=== PATIENT | male | born 1980 | race Caucasian/White ===

== ENCOUNTER 2023-01-26 18:33 | Emergency (ER) | payer MEDICAID, SELFPAY ==
[2023-01-26 18:48] VITALS: BP 114/73; PULSE 75; RESP 16; TEMP 36.9; O2SAT 98; BMI 28.5
[2023-01-26 19:53] VITALS: BP 134/88; PULSE 70; RESP 16; O2SAT 96
--- NOTE | 2023-01-26 20:02 | XR_ITS ---
The [address] [address] Patient Name: NICHOLAS ARZOLA MRN: [id number] date: 1980 Sex: M Assigned Patient Location: ER Current Patient Location: ER Accession/Order Number: [id number] Exam Date: 01/26/2023 20:35 Report Date: 01/26/2023 20:54 At the request of: RADHA GARCIA Procedure: XR abdomen 1V Exam: Radiographs: XR abdomen 1V Reason for exam: possible constipation Comparison: None XR/XR abdomen 1V IMPRESSION: No gas-filled dilated loops of small bowel or colon. No gaseous dilation of the stomach. No fecal impaction. 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 Remainder unremarkable. Electronically authenticated by: DARIO MCPHERSON Date: 01/26/2023 20:54
--- NOTE | 2023-01-26 20:03 | ED_ITS ---
HPI - General Adult General Chief complaint: Abdominal Pain Stated complaint: Abdominal Pain Time Seen by Provider: 01/26/23 19:59 Source: patient Limitations: no limitations History of Present Illness HPI narrative: 42-year-old male presents for discomfort in his abdomen. He doesn't have abdominal pain and he hasn't been vomiting and hasn't had a fever. He is on methadone and sometimes he gets constipated and he's worried about being c onstipated. It feels like gas. He's had this for the last day or two. Related Data Allergies Allergy/AdvReac Type Severity Reaction Status Date / Time No Known Drug Allergies Allergy Verified 01/26/23 18:47 Review of Systems ROS Narrative A ten point review of systems is negative except as noted above. PFSH PFSH Social History Smoking status: Heavy tobacco smoker Exam Narrative Exam Narrative: Nurses note and vital signs reviewed and patient is not hypoxic. General: The patient appears well and in no apparent distress. Patient is resting comfortably on cart. Skin: Warm, dry, no pallor noted. There is no rash noted. Head: Normocephalic, atraumatic Eye: Normal conjunctiva, no drainage Ears, Nose, Mouth, and Throat: oral mucosa is moist. Nares patent. he is edentulous. Cardiovascular: Regular Rate and Rhythm Respiratory: Patient is in no distress, no accessory muscle use, lungs are clear to auscultation, no wheezing, rales or rhonchi Back: non-tender GI: soft and there is no tenderness or distention or mass Musculoskeletal: The patient has no evidence of calf tenderness, no pitting edema, symmetrical pulses noted bilaterally Neurological: A&O, normal speech Psychiatric: Cooperative Constitutional Vital Signs, click to edit/add: Last Vital Signs Temp 98.4 F 01/26/23 18:48 Pulse 70 01/26/23 19:53 Resp 16 01/26/23 19:53 BP 134/88 01/26/23 19:53 Pulse Ox 96 01/26/23 19:53 O2 Del Method Room Air 01/26/23 19:53 Course Vital Signs Vital signs: Vital Signs Temperature 98.4 F 01/26/23 18:48 Pulse Rate 75 01/26/23 18:48 Respiratory Rate 16 01/26/23 18:48 Blood Pressure 114/73 01/26/23 18:48 Pulse Oximetry 98 01/26/23 18:48 Oxygen Delivery Method Room Air 01/26/23 18:48 Temperature 98.4 F 01/26/23 18:48 Pulse Rate 70 01/26/23 19:53 Respiratory Rate 16 01/26/23 19:53 Blood Pressure 134/88 01/26/23 19:53 Pulse Oximetry 96 01/26/23 19:53 Oxygen Delivery Method Room Air 01/26/23 19:53 Medical Decision Making MDM Narrative Medical decision making narrative: the CBC is normal. X-ray of the abdomen on my interpretation shows a moderate amount of stool. He was recommended to have [id number] MiraLAX. Treatment diagnosis and follow-up were discussed with the patient. Differential Diagnosis Differential Diagnosis: nonspecific abdominal pain, constipation Lab Data Lab results reviewed: Yes I reviewed the patient's lab results Labs: Lab Results 01/26/23 01/26/23 Range/Units 20:00 20:18 WBC 10.5 (4.0-11.0) 10^3/uL RBC 4.23 L (4.70-6.10) 10^6/uL Hgb 13.5 L (14.0-18.0) g/dL Hct 40.1 L (42.0-54.0) % MCV 94.8 H (80.0-94.0) fL MCH 31.9 (25.9-34.0) pg MCHC 33.7 (29.9-35.2) g/dL RDW 13.0 (11.0-15.0) % Plt Count 295 (150-450) 10^3/uL MPV 11.3 (9.5-13.5) fL Neut % (Auto) 49.0 (43.0-75.0) % Lymph % (Auto) 38.1 (20.5-60.0) % Isabella % (Auto) 8.7 (1.7-12.0) % Eos % (Auto) 2.6 (0.9-7.0) % Baso % (Auto) 1.3 (0.2-2.0) % Neut # (Auto) 5.2 (1.4-6.5) 10^3/uL Lymph # (Auto) 4.0 H (1.2-3.8) 10^3/uL Isabella # (Auto) 0.9 H (0.3-0.8) 10^3/uL Eos # (Auto) 0.3 (0.0-0.7) 10^3/uL Baso # (Auto) 0.1 (0.0-0.1) 10^3/uL Abs Immat Gran (auto) 0.03 (0.00-0.03) 10^3/uL Imm/Tot Granulo (auto) 0.3 (0.0-0.5) % Urine Color Lt. yellow (YELLOW) Urine Clarity Clear (CLEAR) Urine pH 6.0 (5.0-9.0) Ur Specific [place] <=1.005 A (1.005-1.025) Urine Protein Negative (NEG/TRACE) mg/dL Urine Glucose (UA) Negative (NEGATIVE) mg/dL Urine Ketones Negative (NEGATIVE) mg/dL Urine Occult Blood Trace-i (NEGATIVE) Urine Nitrite Negative (NEGATIVE) Urine Bilirubin Negative (NEGATIVE) Urine Urobilinogen 0.2 (0.2-1.0) EU/dL Ur Leukocyte Esterase Negative (NEGATIVE) Urine RBC 0-2 (0-2) #/HPF Urine WBC 0-2 A (NONE SEEN) #/HPF Ur Squamous Epith Cells Rare (NONE/RARE) #/LPF Urine Crystals None seen (None Seen) #/HPF Urine Bacteria None seen (NONE SEEN) #/HPF Urine Casts None seen (NONE SEEN) #/LPF Urine Mucus None seen (NONE SEEN) Imaging Data Abdominal x-ray: Radiologist's impression: Procedure: XR abdomen 1V Exam: Radiographs: XR abdomen 1V Reason for exam: possible constipation Comparison: None IMPRESSION: No gas-filled dilated loops of small bowel or colon. No gaseous dilation of the stomach. No fecal impaction. 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 Remainder unremarkable. Electronically authenticated by: DARIO MCPHERSON Date: 01/26/2023 20:54 Discharge Plan Discharge Chief Complaint: Abdominal Pain Clinical Impression: Constipation Patient Disposition: Home, Self-Care Time of Disposition Decision: 21:20 Condition: Good Mode of Transportation: Private Vehicle Instructions: Constipation (ED) Additional Instructions: [id number] MiraLAX for constipation Stand Alone Forms: Portal Instructions Referrals: Physician,Non-Staff, MD [Primary Care Provider] - 1 week
[2023-01-26 20:16] LABS: Bilirubin Urine NEGATIVE (NEGATIVE); Blood Urine TRACE-I (NEGATIVE); Clarity Urine CLEAR (CLEAR); Color Urine LT. YELLOW (YELLOW); Glucose Urine UA NEGATIVE (NEGATIVE); Ketones Urine NEGATIVE (NEGATIVE); Leukocyte Esterase Urine NEGATIVE (NEGATIVE); Nitrite Urine NEGATIVE (NEGATIVE); Protein Urine NEGATIVE (NEG/TRACE); Specific Gravity Urine <=1.005 (1.005-1.025); Urobilinogen Urine 0.2 EU/dL (0.2-1.0)
[2023-01-26 20:29] LABS: Bacteria Urine NONE SEEN #/HPF (NONE SEEN); Cast Seen? NONE SEEN #/LPF (NONE SEEN); Crystals Seen? None Seen #/HPF (None Seen); Mucus Urine NONE SEEN (NONE SEEN); RBC Urine 0-2 #/HPF (0-2); Squamous Epithelial Cell Urine RARE #/LPF (NONE/RARE); WBC Urine 0-2 #/HPF (NONE SEEN)
[2023-01-26 20:36] LABS: Basophils Absolute Auto 0.1 10^3/uL (0.0-0.1); Basophils Percent Auto 1.3 % (0.2-2.0); Eosinophils Absolute Auto 0.3 10^3/uL (0.0-0.7); Eosinophils Percent Auto 2.6 % (0.9-7.0); Hematocrit 40.1 % (42.0-54.0); Hemoglobin 13.5 g/dL (14.0-18.0); Immature Granulocytes Abs Auto 0.03 10^3/uL (0.00-0.03); Immature Granulocytes Pct Auto 0.3 % (0.0-0.5); Lymphocytes Percent Auto 38.1 % (20.5-60.0); Mean Corpuscular HGB Conc 33.7 g/dL (29.9-35.2); Mean Corpuscular Hemoglobin 31.9 pg (25.9-34.0); Mean Corpuscular Volume 94.8 fL (80.0-94.0); Mean Platelet Volume 11.3 fL (9.5-13.5); Monocytes Absolute Auto 0.9 10^3/uL (0.3-0.8); Monocytes Percent Auto 8.7 % (1.7-12.0); Neutrophils Absolute Auto 5.2 10^3/uL (1.4-6.5); Platelet Count 295 10^3/uL (150-450); Red Blood Count 4.23 10^6/uL (4.70-6.10); White Blood Count 10.5 10^3/uL (4.0-11.0)
[2023-01-26 21:30] LABS: Anion Gap 8.9; BUN Creatinine Ratio 10.9; Calcium 8.7 mg/dL (8.5-10.1); Carbon Dioxide 29.1 mmol/L (21.0-32.0); Chloride 103 mmol/L (98-107); Estimated GFR (African America >60 (>=60); Estimated GFR (Non-African Ame >60 (>=60); Glucose 86 mg/dL (74-106); Sodium 137 mmol/L (136-145)
== END 2023-01-26 21:25 | disposition home or self-care (01) ==
PROVIDERS: Emergency Provider Emergency Medicine
DX: K59.00 Constipation, unspecified (principal); F17.210 Nicotine dependence, cigarettes, uncomplicated
CPT/HCPCS: 36415; 74018; 80048; 81001; 85025; 99284